=== PATIENT | male | born 1970 | race African-American/Black ===

== ENCOUNTER 2017-05-20 10:33 | Emergency (ER) | payer OTHER ==
[2017-05-20 10:38] VITALS: BMI 55.2
--- NOTE | 2017-05-20 11:10 | PDOC ---
History of Present Illness <Kiera Santacruz - Last Filed: 05/20/17 11:37> - History of Present Illness Initial Comments: 46 year old male with PMH of ADD and Gout presenting with swollen lumps on his face since this AM. States he has had some light itching and swelling of the left lower side of his face/ neck every morning for the past month that has resolved on its own. However, this morning it was much worse, and he had an extremely swollen and painful right ear with multiple swollen lesions around his forehead. He has had a cough for the past month along with some rhinorrhea. Denies any new medications, linen change, detergent change, pets, or other exposures. He took 20 mg of Citirizine without too much relief. Of note, his son has multiple allergies. He denies any fevers, chills, nausea, vomiting, diarrhea, constipation, SOB, or wheezing. 05/20/17 13:08 <Franco Shetty - Last Filed: 05/20/17 15:22> - General Chief Complaint: Allergic Reaction Stated Complaint: SWOLLEN FACE Time Seen by Provider: 05/20/17 11:10 Past History <Kiera Santacruz - Last Filed: 05/20/17 11:37> - Past Medical History COPD: No Other medical history: ADD, GOUT - Suicide/Smoking/Psychosocial Hx Smoking History: Never smoked Information on smoking cessation initiated: No Hx Alcohol Use: No Drug/Substance Use Hx: No Substance Use Type: None <Franco Shetty - Last Filed: 05/20/17 15:22> - Past Medical History Allergies/Adverse Reactions: Allergies Allergy/AdvReac Type Severity Reaction Status Date / Time No Known Allergies Allergy Verified 05/20/17 10:38 Home Medications: Ambulatory Orders Allopurinol [Zyloprim -] 100 mg PO DAILY 05/20/17 Dextroamphetamine/Amphetamine [Adderall 10 mg Tablet] 10 mg PO DAILY 05/20/17 Methylphenidate HCl [Ritalin] 10 mg PO TID 05/20/17 Prednisone [Prednisone 50 MG TABLETS] 50 mg PO DAILY #4 tablet 05/20/17 Review of Systems - Review of Systems Constitutional: No: Chills, Diaphoresis, Fever HEENTM: No: Eye Pain, Blurred Vision Respiratory: Yes: Cough. No: Shortness of Breath, Wheezing Cardiac (ROS): No: Chest Pain, Edema, Irregular Heart Rate, Chest Tightness ABD/GI: No: Constipated, Diarrhea, Nausea, Poor Appetite, Vomiting : No: Burning, Dysuria, Discharge Musculoskeletal: No: Back Pain, Joint Pain Integumentary: Yes: Lesions, Lumps. No: Bruising, Erythema Neurological: No: Headache, Numbness, Paresthesia Endocrine: No: Flushing <Franco Shetty - Last Filed: 05/20/17 15:22> *Physical Exam - Vital Signs Last Vital Signs Temp Pulse Resp BP Pulse Ox 97.7 F 89 18 136/87 100 05/20/17 10:35 05/20/17 10:35 05/20/17 10:35 05/20/17 10:35 05/20/17 10:35 <Kiera Santacruz - Last Filed: 05/20/17 11:37> - Vital Signs Last Vital Signs Temp Pulse Resp BP Pulse Ox 97.7 F 89 18 136/87 100 05/20/17 10:35 05/20/17 10:35 05/20/17 10:35 05/20/17 10:35 05/20/17 10:35 - Physical Exam General Appearance: Yes: Nourished, Appropriately Dressed. No: Apparent Distress HEENT: positive: EOMI, JEET, Normal Voice, Symmetrical, TMs Normal, Pharynx Normal, Other (Right ear slightly tender and moderately swollen. Cutaneous tissue over left and right mandibular area swollen ). negative: Normal ENT Inspection, Hearing Decreased, TM Bulging, TM Dull, TM Erythema Neck: positive: Trachea midline, Normal Thyroid, Supple. negative: Tender, Rigid, Stridor Respiratory/Chest: positive: Lungs Clear, Normal Breath Sounds. negative: Chest Tender, Respiratory Distress, Accessory Muscle Use Cardiovascular: positive: Regular Rhythm, Regular Rate Gastrointestinal/Abdominal: positive: Normal Bowel Sounds, Flat, Soft. negative : Tender Lymphatic: positive: Adenopathy. negative: Tenderness Musculoskeletal: positive: Normal Inspection. negative: CVA Tenderness Extremity: positive: Normal Capillary Refill, Normal Inspection, Normal Range of Motion, Pelvis Stable. negative: Tender Integumentary: negative: Normal Color (Per above), Dry, Warm Neurologic: positive: manager custom II-XII NML intact, Fully Oriented, Alert, Normal Mood/ Affect, Normal Response, Motor Strength 5/5 <Franco Shetty - Last Filed: 05/20/17 15:22> Medical Decision Making - Medical Decision Making 46 year old male with allergic reaction of his face with multiple cutaneous lesions. No airway compromise on presentation. Patient remained stable with improved symptoms after steroid Methylpred 125 and Benadryl 50 MG. Will send home with PCP follow up and Prednisone 50 MG x 4 days. 05/20/17 15:08 <Franco Shetty - Last Filed: 05/20/17 15:22> *DC/Admit/Observation/Transfer <Kiera Santacruz - Last Filed: 05/20/17 11:37> - Discharge Dispostion Admit: No <Franco Shetty - Last Filed: 05/20/17 15:22> Diagnosis at time of Disposition: Allergic reaction Qualifiers: Encounter type: initial encounter Qualified Code(s): T78.40XA - Allergy, unspecified, initial encounter - Discharge Dispostion Disposition: HOME Condition at time of disposition: Improved - Prescriptions Prescriptions: Prednisone [Prednisone 50 MG TABLETS] 50 mg PO DAILY #4 tablet - Referrals Referrals: Anurag Baker MD [Staff Physician] - Pradip Kumar MD [Staff Physician] - - Patient Instructions Printed Discharge Instructions: DI for General Allergic Reactions Additional Instructions: You likely have an allergy to a food or other product you are using. It is important to follow up with an intermediate manager (Dr. Kumar) within the next few days. We referred you to Dr. Kumar. You also shlould see a primary care physician within the next few weeks. If you don't have one we referred you to Dr. Baker. Please use the Prednisone daily and use Benadryl for the itching and swelling as well. Please return to the ED if you have new or worsening symptoms despite treatment. - Post Discharge Activity
--- NOTE | 2017-05-20 11:17 | PDOC ---
Attending Attestation - Resident Resident Name: Franco Shetty - ED Attending Attestation I have performed the following: I have examined & evaluated the patient, The case was reviewed & discussed with the resident, I agree w/resident's findings & plan, Exceptions are as noted - HPI HPI: 46 yo M presents with allergic reaction with facial hives and swelling, swelling to the R ear. He states it started overnight, has been worsening since. He states that the rash is extremely itchy. He did not eat any new foods. No new detergents, soaps, creams. No prior similar symptoms, however, he has a son who has multiple food allergies. - Physicial Exam PE: GENERAL: Awake, alert, and fully oriented, in no acute distress HEAD: No signs of trauma EYES: PERRLA, EOMI, sclera anicteric, conjunctiva clear ENT: R auricle with edema and slight erythema, blanches. +Urticarial rash to face and scalp, one lesion to the head. Hearing grossly normal, nares patent, oropharynx clear without exudates. Moist mucosa. TMs normal B/L. Airway patent, no oral lesions. NECK: Normal ROM, supple, no lymphadenopathy, JVD, or masses LUNGS: Breath sounds equal, clear to auscultation bilaterally. No wheezes, and no crackles HEART: Regular rate and rhythm, normal S1 and S2, no murmurs, rubs or gallops ABDOMEN: Soft, nontender, normoactive bowel sounds. No guarding, no rebound. No masses EXTREMITIES: Normal range of motion, no edema. No clubbing or cyanosis. No cords, erythema, or tenderness NEUROLOGICAL: Cranial nerves II through XII grossly intact. Normal speech, normal gait SKIN: Warm, Dry, normal turgor, no rashes or lesions noted. - Medical Decision Making Pt with allergic reaction, urticarial rash. No known allergens, unknown inciting factor. Will treat with steroids, H1/H2 blockers, benadryl. Will obs in ED. If he is improving will DC home with a course of prednisone. F/u with security manager for skin testing in the future.
[2017-05-20] MEDS ORDERED: methylPREDNISolone NA SUCC 125 MG/2 ML VIAL IVPB ONE (11:46)
[2017-05-20] MEDS ORDERED: FAMOTIDINE IV 20 MG/12 ML VIAL IVPUSH ONE (11:47)
[2017-05-20] MEDS ORDERED: methylPREDNISolone NA SUCC 125 MG/2 ML VIAL ONE (11:51)
[2017-05-20] MEDS ORDERED: FAMOTIDINE 20 MG/50 ML IVPB 20 MG/50 ML MG IVPB ONE (11:51)
[2017-05-20 15:34] VITALS: BP 129/70; PULSE 72; TEMP 98.2
== END 2017-05-20 15:42 | disposition home or self-care (01) ==
LOC: JER 10:33
PROC: 3E0333Z Introduction of Anti-inflammatory into Peripheral Vein, Percutaneous Approach (ICD-10-PCS; principal; 2017-05-20)
PROC: 3E033GC Introduction of Other Therapeutic Substance into Peripheral Vein, Percutaneous Approach (ICD-10-PCS; 2017-05-20)
PROC: 3E033GC Introduction of Other Therapeutic Substance into Peripheral Vein, Percutaneous Approach (ICD-10-PCS; 2017-05-20)
PROC: 3E033GC Introduction of Other Therapeutic Substance into Peripheral Vein, Percutaneous Approach (ICD-10-PCS; 2017-05-20)
DX: T78.49XA Other allergy, initial encounter (principal); L50.9 Urticaria, unspecified
CPT/HCPCS: 99283-25

== ENCOUNTER 2017-05-23 10:05 | Observation (INO) | payer OTHER ==
--- NOTE | 2017-05-23 11:04 | PDOC ---
History of Present Illness - History of Present Illness Initial Comments: 05/23/17 11:29 The patient is a 46 year old male with a significant PMH of ADD, Gout, and "partial closed off kidney presenting with new onset of fatigue, generalized weakness, lightheadedness, nausea and vomiting this morning after being seen for diffuse hives on 05/20/17 and sent home with steroids for treatment. The patient states the hives have not improved since his visit on 05/20/17. He states he woke up to use to the restroom today and "felt weak like I was going to faint ". He denies every fainting or losing consciousness but reports feeling very weak. The patient reports one similar episode of weakness yesterday while at home as well. The patient's states she has been using calamine lotion and benadryl as well as the oral steroids to treat the hives without improvement. The patient reports a generalized abdominal discomfort which he describes as being "queezy". He reports he can not even keep down water secondary to nausea. He states he is concerned for his kidneys because he "didn't realize the steroids might affect the kidney until after starting the steroids." Secondarily , he stated he has an appointment with an admittance attendant next Sunday. He denies chest pain, shortness of breath, headache and dizziness. He denies fever, chills, diarrhea and constipation. He denies dysuria, frequency, urgency and hematuria. <Tracie Howell - Last Filed: 05/23/17 13:07> <Desi Triplett - Last Filed: 05/23/17 16:20> - General Chief Complaint: Weakness Stated Complaint: REVISIT/ SWOLLEN FACE, VOMITING Time Seen by Provider: 05/23/17 11:03 Past History <Tracie Howell - Last Filed: 05/23/17 13:07> - Past Medical History COPD: No - Suicide/Smoking/Psychosocial Hx Smoking History: Never smoked Have you smoked in the past 12 months: No Information on smoking cessation initiated: No Hx Alcohol Use: No Drug/Substance Use Hx: No Substance Use Type: None <Desi Triplett - Last Filed: 05/23/17 16:20> - Past Medical History Allergies/Adverse Reactions: Allergies Allergy/AdvReac Type Severity Reaction Status Date / Time No Known Allergies Allergy Verified 05/23/17 10:07 Home Medications: Ambulatory Orders Allopurinol [Zyloprim -] 100 mg PO DAILY 05/20/17 Dextroamphetamine/Amphetamine [Adderall 10 mg Tablet] 10 mg PO DAILY 05/20/17 Methylphenidate HCl [Ritalin] 10 mg PO DAILY 05/20/17 Prednisone [Prednisone 50 MG TABLETS] 50 mg PO DAILY #4 tablet 05/20/17 Review of Systems - Review of Systems Able to Perform ROS?: Yes Comments:: 05/23/17 11:38 CONSTITUTIONAL: (+) weakness and fatigue. Absent: fever, no chills, EYES: Absent: visual changes ENT: Absent: ear pain, no sore throat CARDIOVASCULAR: Absent: chest pain, no palpitations RESPIRATORY: Absent: cough, no SOB GASTROINTESTINAL: (+) abdominal pain, nausea, vomiting, Absent:no constipation, no diarrhea GENITOURINARY: Absent: dysuria, no frequency, no hematuria MUSCULOSKELETAL: Absent: back pain, no arthralgia, no myalgia SKIN: (+) hives, rash NEURO: (+) lightheadedness. Absent: headache <Tracie Howell - Last Filed: 05/23/17 13:07> *Physical Exam - Vital Signs Last Vital Signs Temp Pulse Resp BP Pulse Ox 98.8 F 125 H 18 90/62 100 05/23/17 10:07 05/23/17 10:07 05/23/17 10:07 05/23/17 10:07 05/23/17 10:07 - Physical Exam Comments: 05/23/17 11:39 GENERAL: The patient is in no acute distress. HEAD: Normal with no signs of trauma. EYES: PERRLA, EOMI, sclera anicteric, conjunctiva clear. ENT: (+) Dry mucous membranes. Ears normal, nares patent, oropharynx clear without exudates. NECK: Normal range of motion, supple without lymphadenopathy, JVD, or masses. LUNGS: Breath sounds equal, clear to auscultation bilaterally. No wheezes, and no crackles. HEART: (+) tachycardic rate. Regular rhythm, normal S1 and S2 without murmur, rub or gallop. ABDOMEN: Soft, nontender, normoactive bowel sounds. No guarding, no rebound. No masses palpable. EXTREMITIES: Normal range of motion, no edema. No clubbing or cyanosis. No erythema, or tenderness. NEUROLOGICAL: Cranial nerves II through XII grossly intact. Normal speech. No focal neurological deficits. MUSCULOSKELETAL: Back non-tender to palpation, no CVA tenderness SKIN: (+) widely diffuse urticarial lesions to extremities, abdomen, back, trunk , neck. <Tracie Howell - Last Filed: 05/23/17 13:07> - Vital Signs Last Vital Signs Temp Pulse Resp BP Pulse Ox 98.8 F 125 H 18 90/62 100 05/23/17 10:07 05/23/17 10:07 05/23/17 10:07 05/23/17 10:07 05/23/17 10:07 <Desi Triplett - Last Filed: 05/23/17 16:20> ED Treatment Course - LABORATORY CBC & Chemistry Diagram: 05/23/17 12:11 05/23/17 12:11 <Tracie Howell - Last Filed: 05/23/17 13:07> - LABORATORY CBC & Chemistry Diagram: 05/23/17 12:11 05/23/17 12:11 <Desi Triplett - Last Filed: 05/23/17 16:20> Medical Decision Making - Medical Decision Making 05/23/17 12:35 Mr Herrmann is a 46 yo M who presents to the ER hypotensive with a complaint of intractable nausea., queasiness One fever noted No chest pain No shortenss of breath Pt was recently see in the ER for allergic reaction Pt has persistent urticarial lesions No tongue or throat swelling EKG: Sinus tachycardia, rate of 103 bpm, axis is normal, intervals are normal, no ST elevations or depressions, T waves are inverted in leads and aVF 05/23/17 13:48 Laboratory Tests 05/23/17 05/23/17 05/23/17 12:11 12:11 12:11 WBC 3.0 L Hgb 17.7 H Hct 51.8 H Plt Count 276 PT with INR 15.30 H INR 1.35 H Sodium 136 Potassium 4.4 Chloride 104 Carbon Dioxide 25 BUN 22 H Creatinine 1.3 Random Glucose 160 H Lactic Acid Total Bilirubin 1.0 Creatine Kinase Troponin I Lipase 50 L 05/23/17 05/23/17 12:11 12:11 WBC Hgb Hct Plt Count PT with INR INR Sodium Potassium Chloride Carbon Dioxide BUN Creatinine Random Glucose Lactic Acid 2.3 H* Total Bilirubin Creatine Kinase 65 Troponin I < 0.02 Lipase 05/23/17 16:14 Pt reports continued abdominal pain CT negative for acute pathology - appendix nml, no sbo Pt continue to have nausea and vomiting Will do US Will give additional Zofran Will continue to hydrate Will 05/23/17 16:19 case reviewed with hospitalist Pt pending CT Symptoms possibly related to gastritis due to prednisone Will continue to hydrate, will give pepcid, will give more zofran Clinical Impression: gastritis, initial presentation <Desi Triplett - Last Filed: 05/23/17 16:20> *DC/Admit/Observation/Transfer - Attestations Scribe Attestion: 05/23/17 11:40 Documentation prepared by Tracie Howell, acting as emergency medical technician basic for Desi Triplett MD <Tracie Howell - Last Filed: 05/23/17 13:07> - Discharge Dispostion Admit: Yes <Desi Triplett - Last Filed: 05/23/17 16:20> Diagnosis at time of Disposition: Vomiting bile Qualifiers: Nausea presence: with nausea Qualified Code(s): R11.14 - Bilious vomiting Gastritis Qualifiers: Gastritis type: unspecified gastritis Chronicity: acute Gastritis bleeding: without bleeding Qualified Code(s): K29.00 - Acute gastritis without bleeding - Discharge Dispostion Condition at time of disposition: Stable
[2017-05-23] MEDS ORDERED: SODIUM CHLORIDE 1,000 ML IV STA ×2 (11:56→15:07)
[2017-05-23] MEDS ORDERED: ONDANSETRON 4 MG/2 ML VIAL IVPB ONE (11:56)
[2017-05-23] MEDS ORDERED: ONDANSETRON 4 MG/2 ML VIAL ONE ×2 (12:22→16:33)
[2017-05-23 12:43] LABS: BASO % 0.1 % (0-2.0); EOS % 0.1 % (0-4.5); HEMATOCRIT 51.8 % (35.4-49); HEMOGLOBIN 17.7 GM/dL (11.7-16.9); LYMPH % 27.2 % (8-40); MCH 29.1 pg (25.7-33.7); MCHC 34.1 g/dl (32.0-35.9); MEAN CELL VOLUME 85.2 fl (80-96); MEAN PLT VOLUME 9.2 fl (7.5-11.1); NEUT % 65.6 % (42.8-82.8); PLATELET COUNT 276 K/MM3 (134-434); RBC 6.08 M/mm3 (4.00-5.60)
[2017-05-23 13:07] LABS: INR 1.35 (0.82-1.09); PROTHROMBIN TIME (PATIENT) 15.3 SEC (9.98-11.88)
[2017-05-23 13:21] LABS: ALBUMIN 3.2 g/dl (3.4-5.0); ANION GAP 7 (8-16); BLOOD UREA NITROGEN 22 mg/dL (7-18); CALCIUM 8.4 mg/dL (8.5-10.1); CHLORIDE 104 mmol/L (98-107); CO2 25 mmol/L (21-32); CREATININE 1.3 mg/dL (0.7-1.3); GLUCOSE,RANDOM 160 mg/dL (74-106); LIPASE 50 U/L (73-393); POTASSIUM 4.4 mmol/L (3.5-5.1); SGOT/AST 15 U/L (15-37); SGPT/ALT 33 U/L (12-78); SODIUM 136 mmol/L (136-145); TOT PROT 6.3 g/dl (6.4-8.2)
[2017-05-23 13:22] LABS: ALK PHOS 67 U/L (45-117)
[2017-05-23] MEDS ORDERED: morphine CARPU-JECT 4 MG/1 ML DISP.SYRIN IVPUSH ONE (15:06)
[2017-05-23] MEDS ORDERED: MORPHINE SULFATE 10 MG/1 ML *VIAL ONE (15:11)
--- NOTE | 2017-05-23 15:37 | EKG ---
Test Reason : Blood Pressure : / mmHG Vent. Rate : 103 BPM Atrial Rate : 103 BPM P-R Int : 140 ms QRS Dur : 086 ms QT Int : 308 ms P-R-T Axes : 068 036 021 degrees QTc Int : 403 ms SINUS TACHYCARDIA POSSIBLE LEFT ATRIAL ENLARGEMENT NONSPECIFIC T WAVE ABNORMALITY ABNORMAL ECG NO PREVIOUS ECGS AVAILABLE Confirmed by DILSHAD SHRESTHA, REBECCA ([id number]) on 05/23/2017 3:36:47 PM Referred By: Confirmed By:REBECCA YUNG MD
[2017-05-23] MEDS ORDERED: ONDANSETRON 4 MG/2 ML VIAL IVPUSH ONE (16:13)
[2017-05-23] MEDS ORDERED: FAMOTIDINE 20 MG/50 ML IVPB 20 MG/50 ML MG IVPB ONE ×2 (16:22→16:34)
--- NOTE | 2017-05-23 17:15 | PN ---
Teaching Attending Note Name of Resident: Ismael Cisneros ATTENDING PHYSICIAN STATEMENT I saw and evaluated the patient. I reviewed the resident's note and discussed the case with the resident. I agree with the resident's findings and plan as documented. SUBJECTIVE: OBJECTIVE: Vital Signs Period Temp Pulse Resp BP Sys/Epps Pulse Ox Last 24 Hr 98.3 F-98.8 F 98-125 18 90-139/62-94 95-100 Laboratory Tests 05/23/17 05/23/17 05/23/17 12:11 12:11 12:11 WBC 3.0 L RBC 6.08 H Hgb 17.7 H Hct 51.8 H MCV 85.2 MCH 29.1 MCHC 34.1 RDW 14.0 Plt Count 276 MPV 9.2 Neutrophils % 65.6 Lymphocytes % 27.2 Monocytes % 7.0 Eosinophils % 0.1 Basophils % 0.1 PT with INR 15.30 H INR 1.35 H Sodium 136 Potassium 4.4 Chloride 104 Carbon Dioxide 25 Anion Gap 7 L BUN 22 H Creatinine 1.3 Creat Clearance w eGFR 59.70 Random Glucose 160 H Lactic Acid Calcium 8.4 L Total Bilirubin 1.0 AST 15 ALT 33 Alkaline Phosphatase 67 Creatine Kinase Troponin I Total Protein 6.3 L Albumin 3.2 L Lipase 50 L 05/23/17 05/23/17 12:11 12:11 WBC RBC Hgb Hct MCV MCH MCHC RDW Plt Count MPV Neutrophils % Lymphocytes % Monocytes % Eosinophils % Basophils % PT with INR INR Sodium Potassium Chloride Carbon Dioxide Anion Gap BUN Creatinine Creat Clearance w eGFR Random Glucose Lactic Acid 2.3 H* Calcium Total Bilirubin AST ALT Alkaline Phosphatase Creatine Kinase 65 Troponin I < 0.02 Total Protein Albumin Lipase Home Medications Medication Instructions Recorded Allopurinol [Zyloprim -] 100 mg PO DAILY 05/20/17 Dextroamphetamine/Amphetamine 10 mg PO DAILY 05/20/17 [Adderall 10 mg Tablet] Methylphenidate HCl [Ritalin] 10 mg PO DAILY 05/20/17 Prednisone [Prednisone 50 MG 50 mg PO DAILY #4 tablet 05/20/17 TABLETS] ASSESSMENT AND PLAN:
--- NOTE | 2017-05-23 17:26 | HP ---
CHIEF COMPLAINT: nausea, vomiting, pain abdomen. PCP: darek logan [phone] HISTORY OF PRESENT ILLNESS: He reports that this morning e has epigastria pain , non radiating, burning type, got better after morphine associated with vomiting. Has 4 episodes of vomiting, bile color, no blood. Denies blood in stool, denies diarrhoea, denies yellow discoloration of eyes, denies change in stool color, denies blood transfusion history, denies iv drug abuse. reports he ate pizza on Sunday and after that he develop rash all over the body, rashes are not getting better, reports they goes away and new one shows up.Denies difficulty in swallowing and breathing. Denies new soap, shampoo, clothes, bed sheet, medication, food. Denies hiking, Denies working in wood. He also reports couple of episodes of fever max 102.4 Denies burning micturation, change in frequency, swelling in joints, chills. Denies myalgia, arthalgia. In Er found to be ypotensive: improved after IV fluid. 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 Allergies No Known Allergies Allergy (Verified 05/23/17 10:07) HOME MEDICATIONS: Home Medications Medication Instructions Recorded Allopurinol [Zyloprim -] 100 mg PO DAILY 05/20/17 Dextroamphetamine/Amphetamine 10 mg PO DAILY 05/20/17 [Adderall 10 mg Tablet] Methylphenidate HCl [Ritalin] 10 mg PO DAILY 05/20/17 Prednisone [Prednisone 50 MG 50 mg PO DAILY #4 tablet 05/20/17 TABLETS] REVIEW OF SYSTEMS CONSTITUTIONAL: Absent: fever, chills, diaphoresis, generalized weakness, malaise, loss of appetite, weight change HEENT: Absent: rhinorrhea, nasal congestion, throat pain, throat swelling, difficulty swallowing, mouth swelling, ear pain, CARDIOVASCULAR: Absent: chest pain, syncope, palpitations, irregular heart rate, lightheadedness , peripheral edema RESPIRATORY: Absent: cough, shortness of breath, dyspnea with exertion, wheezing, stridor, hemoptysis GASTROINTESTINAL: Absent: abdominal pain, abdominal distension, nausea, vomiting, diarrhea, constipation, melena, hematochezia GENITOURINARY: Absent: dysuria, frequency, urgency, hesitancy, hematuria, flank pain, genital pain MUSCULOSKELETAL: Absent: myalgia, arthralgia, joint swelling, back pain, neck pain SKIN: as above HEMATOLOGIC/IMMUNOLOGIC: Absent: easy bleeding, easy bruising, ENDOCRINE: Absent: unexplained weight gain, unexplained weight loss, NEUROLOGIC: Absent: headache, focal weakness or paresthesias, PSYCHIATRIC: Absent: anxiety, depression, PHYSICAL EXAMINATION Vital Signs - 24 hr 05/23/17 05/23/17 05/23/17 10:07 11:50 15:18 Temperature 98.8 F 98.3 F Pulse Rate 125 H Pulse Rate [ 105 H 98 H Apical] Respiratory 18 Rate Blood Pressure 90/62 Blood Pressure 139/94 119/75 [Left Arm] O2 Sat by Pulse 100 98 95 Oximetry (%) GENERAL: Awake, alert, and fully oriented, HEAD: Normal with no signs of trauma. EYES: Pupils equal, round and reactive to light, extraocular movements intact, sclera anicteric, conjunctiva clear. No lid lag. no yellow discoloration EARS, NOSE, THROAT: oropharynx clear without exudates. Moist mucous membranes. no erthema or omar NECK: Normal range of motion, LUNGS: Breath sounds equal, clear to auscultation bilaterally. No wheezes, and no crackles. No accessory muscle use. HEART: Regular rate and rhythm, normal S1 and S2 without murmur, ABDOMEN: Soft, nontender, not distended, normoactive bowel sounds, no guarding, no rebound, no masses. MUSCULOSKELETAL: Normal range of motion at all joints. No bony deformities or tenderness. UPPER EXTREMITIES: 2+ pulses, warm, well-perfused. No cyanosis. No clubbing. No peripheral edema. LOWER EXTREMITIES: warm, well-perfused. No calf tenderness. No peripheral edema. NEUROLOGICAL: Cranial nerves II-XII intact. Normal speech. PSYCHIATRIC: Cooperative. Good eye contact. Appropriate mood and affect. SKIN: Warm, dry, diffuse urticarial rash with some target like lesions. Laboratory Results - last 24 hr 05/23/17 05/23/17 05/23/17 12:11 12:11 12:11 WBC 3.0 L RBC 6.08 H Hgb 17.7 H Hct 51.8 H MCV 85.2 MCH 29.1 MCHC 34.1 RDW 14.0 Plt Count 276 MPV 9.2 Neutrophils % 65.6 Lymphocytes % 27.2 Monocytes % 7.0 Eosinophils % 0.1 Basophils % 0.1 PT with INR 15.30 H INR 1.35 H Sodium 136 Potassium 4.4 Chloride 104 Carbon Dioxide 25 Anion Gap 7 L BUN 22 H Creatinine 1.3 Creat Clearance w eGFR 59.70 Random Glucose 160 H Lactic Acid Calcium 8.4 L Total Bilirubin 1.0 AST 15 ALT 33 Alkaline Phosphatase 67 Creatine Kinase Troponin I Total Protein 6.3 L Albumin 3.2 L Lipase 50 L 05/23/17 05/23/17 05/23/17 12:11 12:11 16:40 WBC RBC Hgb Hct MCV MCH MCHC RDW Plt Count MPV Neutrophils % Lymphocytes % Monocytes % Eosinophils % Basophils % PT with INR INR Sodium Potassium Chloride Carbon Dioxide Anion Gap BUN Creatinine Creat Clearance w eGFR Random Glucose Lactic Acid 2.3 H* 1.4 Calcium Total Bilirubin AST ALT Alkaline Phosphatase Creatine Kinase 65 Troponin I < 0.02 Total Protein Albumin Lipase CT abdomen : Evaluation of the solid viscera, bowel and vessels is limited without contrast. There is discoid atelectasis in both lung bases, right more than left. The heart is not enlarged. There is hepatic steatosis. Normal liver size and contour. The gallbladder is not pathologically distended. The common bile duct is not dilated. The unenhanced pancreas is unremarkable. Normal size spleen. There is no adrenal gland mass. The kidneys are normal size. 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 There are no renal or ureteral calculi. No hydroureteronephrosis. There are likely left renal sinus cysts. Normal caliber abdominal aorta. No pathologically enlarged lymph nodes within the abdomen or pelvis by CT size criteria. No dilated loops of large or small bowel to suggest obstruction. A normal-appearing appendix is visualized. There are sigmoid diverticula with no evidence of diverticulitis. There is no free intraperitoneal air or ascites. The urinary bladder is underdistended, limiting evaluation. There is no evidence of urinary bladder calculus. The prostate gland is normal size. No acute fracture in the visualized bones. IMPRESSION: 1. No obstructive uropathy. No evidence of urinary tract calculus. 2. Normal-appearing appendix. No evidence of bowel obstruction or diverticulitis. 3. Hepatic steatosis. ASSESSMENT/PLAN: 46 y/o m with PMH of gout came to hospital on Sunday for generalized urticaria. He was discharged on Benadryl and prednisone( 50mg started on Sunday). Now came back for lightheadedness, generalized weaken, vomiting, pain abdomen. Gastritis likely from prednisone. Less likely gall stone ds. Iv protonix 40 bid sucralfate po IV fluid clear liquid if tolerate monitor intake and output monitor vitals usg liver pending. morphine prn for pain. zofran for vomiting/nausea Genralized rash : likely urticaria, less likely lyme benadryl 25mg po q6h prn hold steroid for now, so rash doesn't subside before derma and id evaluation. Although patient took steroid for 3 days with no benefit. ASHIA, CRP, ESR ID consult [place] consult. Patient has outpatient appointment with group home manager and diesel power mechanic next Sunday. Lacticacidosis: likely from hypotension from vomiting or from inflammatory process. ADD continue home meds. Fluid: Ns 100ml/hr electrolyte: repeat in a Nutrition; clear liquid. Dvt pro: scd gi pro; protonix and sucralfate. dispo; observation. Visit type - Emergency Visit Emergency Visit: Yes Care time: The patient presented to the Emergency Department on the above date and was hospitalized for further evaluation of their emergent condition. - New Patient This patient is new to me today: Yes Date on this admission: 05/23/17 - Critical Care Critical Care patient: No Hospitalist Screening - Colonoscopy Questionnaire Colonoscopy Questionnaire: Colonoscopy Questionnaire - Patient: 50 - 75 years old and never had a screening colonoscopy: Unknown History of colon or rectal polyps, or CA: Unknown History of IBD, Crohn's disease or UC: Unknown History of abdominal radiation therapy as a child: Unknown - Relative: 1 with colon or rectal CA, or polyps at age 60 or younger: Unknown Colon or rectal CA diagnosed at age 45 or younger: Unknown Multiple relatives with colon or rectal CA: Unknown - Outcome: Screening Result: Negative Screen
[2017-05-23] MEDS: SODIUM CHLORIDE 1,000 ML IV SCH (17:41)
[2017-05-23] MEDS ORDERED: morphine SULFATE 4 MG/ML VIAL IVPUSH PRN (17:59)
[2017-05-23] MEDS ORDERED: ONDANSETRON 4 MG/2 ML VIAL IVPUSH PRN (18:00)
[2017-05-23] MEDS ORDERED: PANTOPRAZOLE SODIUM 40 MG VIAL ONE (22:48)
[2017-05-23] MEDS ORDERED: diphenhydrAMINE HCL 25 MG CAPSULE (FP) PO ONE (22:48)
[2017-05-23] MEDS: SUCRALFATE 1 GM TABLET (FP) PO SCH (22:57)
[2017-05-23] MEDS: PANTOPRAZOLE SODIUM 40 MG VIAL IVPUSH SCH (22:58)
[2017-05-23] MEDS: diphenhydrAMINE HCL 25 MG CAPSULE (FP) PO PRN (22:58)
[2017-05-24] MEDS ORDERED: diphenhydrAMINE HCL 25 MG CAPSULE (FP) PO ONE (05:18)
[2017-05-24] MEDS: SODIUM CHLORIDE 1,000 ML IV SCH ×3 (05:20→21:55)
[2017-05-24] MEDS: diphenhydrAMINE HCL 25 MG CAPSULE (FP) PO PRN ×2 (05:20→11:35)
[2017-05-24 08:09] LABS: BASO % 0.1 % (0-2.0); EOS % 1.4 % (0-4.5); HEMATOCRIT 48.3 % (35.4-49); HEMOGLOBIN 16.2 GM/dL (11.7-16.9); LYMPH % 35.8 % (8-40); MCH 29.2 pg (25.7-33.7); MCHC 33.6 g/dl (32.0-35.9); MEAN PLT VOLUME 9.2 fl (7.5-11.1); MONO % 5.4 % (3.8-10.2); NEUT % 57.3 % (42.8-82.8); PLATELET COUNT 273 K/MM3 (134-434); RBC 5.55 M/mm3 (4.00-5.60); RDW 13.8 % (11.9-15.9); WHITE BLOOD COUNT 3.6 K/mm3 (4.0-10.0)
[2017-05-24 08:25] LABS: INR 1.4 (0.82-1.09); PROTHROMBIN TIME (PATIENT) 15.8 SEC (9.98-11.88)
[2017-05-24 08:49] LABS: ALBUMIN 2.6 g/dl (3.4-5.0); ANION GAP 6 (8-16); BILIRUBIN,TOTAL 0.9 mg/dL (0.2-1.0); BLOOD UREA NITROGEN 19 mg/dL (7-18); CALCIUM 7.9 mg/dL (8.5-10.1); CHLORIDE 107 mmol/L (98-107); CO2 27 mmol/L (21-32); CREATININE 1.3 mg/dL (0.7-1.3); GLUCOSE,RANDOM 104 mg/dL (74-106); MAGNESIUM 2.2 mg/dL (1.8-2.4); POTASSIUM 4.4 mmol/L (3.5-5.1); SGOT/AST 7 U/L (15-37); SGPT/ALT 20 U/L (12-78); SODIUM 140 mmol/L (136-145); TOT PROT 5.4 g/dl (6.4-8.2)
[2017-05-24 08:54] LABS: ALK PHOS 58 U/L (45-117)
[2017-05-24] MEDS: SUCRALFATE 1 GM TABLET (FP) PO SCH ×2 (09:14→21:49)
[2017-05-24] MEDS ORDERED: PANTOPRAZOLE SODIUM 40 MG VIAL ONE (09:16)
[2017-05-24] MEDS: PANTOPRAZOLE SODIUM 40 MG VIAL IVPUSH SCH ×2 (09:17→21:49)
--- NOTE | 2017-05-24 11:43 | PN ---
Progress Note (short form) - Note Progress Note: ID Generalized urticarial rash with lip swelling several days seen ER and given prednisone without improvement Yesterday felt week like going to fall out Also febrile at home 102 shivering per . No localizing complaints Take Allopurinol for gout but this is an old medication for home. Selected Entries 05/24/17 06:00 Temperature 97.8 F Pulse Rate 69 Respiratory 20 Rate Blood Pressure 121/64 Assessment Severe uriticaria Allergic urticaria Fever ? source Also leukopenia noted high CRP afebrile Plan Blood and urine cultures Observe fever off antibiotics Solumedrol 80mg q 8 H HIV testing Dermatology evaluation Edilberto SHRESTHA Problem List - Problems (1) Allergic reaction Code(s): T78.40XA - ALLERGY, UNSPECIFIED, INITIAL ENCOUNTER Qualifiers: Encounter type: initial encounter Qualified Code(s): T78.40XA - Allergy, unspecified, initial encounter (2) Acute urticaria Code(s): L50.8 - OTHER URTICARIA (3) Fever Code(s): R50.9 - FEVER, UNSPECIFIED
--- NOTE | 2017-05-24 12:57 | CONS ---
INFECTIOUS DISEASE CONSULTATION DATE OF CONSULTATION: DATE OF DICTATION: 05/24/2017 This is a 46-year-old male who was admitted to the hospital with chief complaint of generalized urticaria. The patient was recently seen in the emergency room for onset of hives and sent home with a prescription for prednisone 50 mg which he took earlier this week. The rash did not improve, however, and yesterday, according to his and the patient, he developed onset of temperature to 102. He also had shaking chills but denied any localizing complaints. Here in the emergency room, he complains of diffuse rash and facial swelling. He has no fever, and his vital signs are stable. He has a history of gout for which he takes allopurinol, but this is an old medication which he has tolerated well in the past. He is on no other medications, though notes a history of partial obstruction of the kidney due to a congenital abnormality. 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 He does not smoke or use drugs. He is . FAMILY HISTORY: Reviewed and noncontributory. REVIEW OF SYSTEMS: Respiratory: No cough, shortness of breath, sore throat. Cardiac: No chest pain, palpitations, syncope. Gastrointestinal: No abdominal pain. Three episodes of vomiting noted yesterday. Currently, no nausea, blood per rectum, diarrhea. Genitourinary: No dysuria, hematuria, urinary frequency. PHYSICAL EXAMINATION: General: He was an alert male in no acute distress. Vital Signs: Temperature was 98, pulse 98, blood pressure 120/75, respirations 9.5. Skin: Large urticarial plaques coalescing on the lower extremities, thighs. DIAGNOSTIC DATA: The white count is 3.0 with a hemoglobin of 17.7, platelets of 276, and normal differential count. BUN 19, creatinine 1.3. Bilirubin 1.0. AST 15. CRP 22.7. Abdominal CT obtained shows no obstructive uropathy, essentially normal except for hepatic steatosis. ASSESSMENT: 1. Severe urticaria. 2. Allergic urticaria with facial swelling and angioedema. 3. History of fever and chills with shivering but no localizing complaints currently, and he is here afebrile with stable vital signs. I would prefer not to give him any antibiotic or other medications at this time. He does need parenteral steroids, and I have given him 60 mg of Solu-Medrol every 6 hours. Will await dermatology consultation. KARUNA PAREDES M.D. MERLY/[id number]
--- NOTE | 2017-05-24 16:52 | PN ---
Physical Exam: SUBJECTIVE: Patient seen and examined in the ED awaiting bed placement. OBJECTIVE: See in the ED generalized welts Feels uncomfortable, itchy will give IV Benadryl now and tonight Vital Signs Period Temp Pulse Resp BP Sys/Epps Pulse Ox Last 24 Hr 97.8 F-98.8 F 69-94 18-20 100-121/59-69 94-94 GENERAL: The patient is awake, alert, and fully oriented, in no acute distress. HEAD: Normal with no signs of trauma. EYES: PERRL, extraocular movements intact, sclera anicteric, conjunctiva clear. No ptosis. ENT: Ears normal, nares patent, oropharynx clear without exudates, moist mucous membranes. NECK: Trachea midline, full range of motion, supple. LUNGS: Breath sounds equal, clear to auscultation bilaterally, no wheezes, no crackles, no accessory muscle use. HEART: Regular rate and rhythm, S1, S2 without murmur, rub or gallop. ABDOMEN: Soft, nontender, nondistended, normoactive bowel sounds, no guarding, no rebound, no hepatosplenomegaly, no masses. SKIN: generalized welts, unclear etiology Laboratory Results - last 24 hr 05/23/17 05/23/17 05/24/17 12:11 16:40 07:40 WBC 3.6 L RBC 5.55 Hgb 16.2 Hct 48.3 MCV 87.0 MCH 29.2 MCHC 33.6 RDW 13.8 Plt Count 273 MPV 9.2 Neutrophils % 57.3 Lymphocytes % 35.8 D Monocytes % 5.4 Eosinophils % 1.4 D Basophils % 0.1 ESR PT with INR INR Sodium Potassium Chloride Carbon Dioxide Anion Gap BUN Creatinine Creat Clearance w eGFR Random Glucose Lactic Acid 1.4 Calcium Phosphorus Magnesium Total Bilirubin AST ALT Alkaline Phosphatase Creatine Kinase 65 Troponin I < 0.02 C-Reactive Protein 14.7 H Total Protein Albumin 05/24/17 05/24/17 05/24/17 07:40 07:40 07:40 WBC RBC Hgb Hct MCV MCH MCHC RDW Plt Count MPV Neutrophils % Lymphocytes % Monocytes % Eosinophils % Basophils % ESR PT with INR 15.80 H INR 1.40 H Sodium 140 Potassium 4.4 Chloride 107 Carbon Dioxide 27 Anion Gap 6 L BUN 19 H Creatinine 1.3 Creat Clearance w eGFR 59.70 Random Glucose 104 D Lactic Acid Calcium 7.9 L Phosphorus 2.0 L Magnesium 2.2 Total Bilirubin 0.9 AST 7 L D ALT 20 D Alkaline Phosphatase 58 Creatine Kinase Troponin I C-Reactive Protein 22.7 H Cancelled Total Protein 5.4 L Albumin 2.6 L 05/24/17 07:40 WBC RBC Hgb Hct MCV MCH MCHC RDW Plt Count MPV Neutrophils % Lymphocytes % Monocytes % Eosinophils % Basophils % ESR 6 PT with INR INR Sodium Potassium Chloride Carbon Dioxide Anion Gap BUN Creatinine Creat Clearance w eGFR Random Glucose Lactic Acid Calcium Phosphorus Magnesium Total Bilirubin AST ALT Alkaline Phosphatase Creatine Kinase Troponin I C-Reactive Protein Total Protein Albumin Active Medications Generic Name Dose Route Start Last Admin Trade Name Freq PRN Reason Stop Dose Admin Diphenhydramine HCl 25 mg 05/23/17 17:24 05/24/17 11:35 Benadryl - PO 25 mg Q6H PRN Administration urticaria Sodium Chloride 1,000 mls @ 100 mls/hr 05/23/17 17:30 05/24/17 05:20 Normal Saline - IV 100 mls/hr ASDIR ROMERO Administration Methylprednisolone Sodium Succinate 60 mg 05/24/17 18:00 Solu-Medrol - IVPUSH Q8H-IV ROMERO Morphine Sulfate 2 mg 05/23/17 17:59 Morphine Sulfate IVPUSH 05/26/17 17:58 Q6H PRN PAIN LEVEL 6-10 Ondansetron HCl 4 mg 05/23/17 18:00 Zofran Injection IVPUSH Q6H PRN NAUSEA Pantoprazole Sodium 40 mg 05/23/17 22:00 05/24/17 09:17 Protonix Iv IVPUSH 40 mg BID ROMERO Administration Sucralfate 1 gm 05/23/17 22:00 05/24/17 09:14 Carafate - PO 1 gm BID ROMERO Administration ASSESSMENT/PLAN: Patient is a 46 year old male who comes to the ED with c/o of epigastria pain, non radiating. Patient reports that on Sunday he ate pizza then developed a rash all over his body. Rash persists, not getting better, denies any other possible cause that he can think of. Not allergic to anything else that he is aware of. No new soaps, meds, shampoos, foods. Has cat x 6 months. Derm: Generalized Rash, no wheezing Now on Solumedrol 60mg q8 per ID On Protonix IV BID for GI protection Benadryl 25mg IV Morphine prn ID consult and following [place] consult. Monitor for improvement Card: Hypotension improved with IVF Continue IVF F.E.N. Fluids: NS @ 100 x 24 hours Electrolytes: monitor Nutrition: regular diet Prophy: DVT: scds, ambulation GI: Protonix BID Disposition: full code. Visit type - Emergency Visit Emergency Visit: Yes ED Registration Date: 05/23/17 Care time: The patient presented to the Emergency Department on the above date and was hospitalized for further evaluation of their emergent condition. - New Patient This patient is new to me today: Yes Date on this admission: 05/25/17 - Critical Care Critical Care patient: No - Discharge Referral Referred to [facility] Med P.C.: No
[2017-05-24] MEDS: methylPREDNISolone NA SUCC 40 MG/1 ML VIAL IVPUSH SCH (18:44)
[2017-05-24 19:05] VITALS: BMI 45.1
--- NOTE | 2017-05-24 19:34 | CONSULT ---
Consult Consult Specialty:: Dermatology - History Source History Provided By: Patient - Past Medical History Rheumatology: Yes: Gout - Alcohol/Substance Use Hx Alcohol Use: No - Smoking History Smoking history: Never smoked Have you smoked in the past 12 months: No Home Medications - Allergies Allergies/Adverse Reactions: Allergies Allergy/AdvReac Type Severity Reaction Status Date / Time No Known Allergies Allergy Verified 05/23/17 10:07 - Home Medications Home Medications: Ambulatory Orders Allopurinol [Zyloprim -] 100 mg PO DAILY 05/20/17 Dextroamphetamine/Amphetamine [Adderall 10 mg Tablet] 10 mg PO DAILY 05/20/17 Methylphenidate HCl [Ritalin] 10 mg PO DAILY 05/20/17 Prednisone [Prednisone 50 MG TABLETS] 50 mg PO DAILY #4 tablet 05/20/17 Family Disease History - Family Disease History Family History: Unable to Obtain Physical Exam Vital Signs: Vital Signs Temperature 99.5 F 05/24/17 18:00 Pulse Rate 104 H 05/24/17 18:00 Respiratory Rate 20 05/24/17 18:00 Blood Pressure 144/77 05/24/17 18:00 O2 Sat by Pulse Oximetry (%) 98 05/24/17 18:00 Labs: CBC, BMP 05/24/17 07:40 05/24/17 07:40 Assessment/Plan 46 yr old mad reports that he developed a generalized rash on Sunday for which he received treatment at ER and was discharged . He continued to get new lesions on skin that was also accompanied by episodes of sweating and symptoms of fainting.he was admitted yesterday with a generalized urticarial eruption including lower lip swelling. He denies shortness of breath, tongue or throat symptoms.\ He does not know of or recall ingesting or being exposed to any new medications , foods or OTC preparations. on exam he has urticarial lesions on all extremities some on anterior hair line and scattered lesions on the chest. The lesions are pruritic and slightly painful to touch. He has edema of arms and hands. Diagnosis. Idiopathic Urticaria. Rx Hydroxyzine 25mg qam Benadryl Q6 prn and continuation of IV steroids. application of triamcinolone 0.1 % cream may also be helpful. Rheumatology and or Allergy consult may also be helpful to determine any underlying etiology
[2017-05-24] MEDS: TRIAMCINOLONE ACET 0.1% CREAM 15 GM TUBE TP SCH (22:21)
[2017-05-25] MEDS: methylPREDNISolone NA SUCC 40 MG/1 ML VIAL IVPUSH SCH ×3 (01:15→23:58)
[2017-05-25] MEDS: hydrOXYzine HCL 25 MG TABLET (FP) PO SCH (06:08)
[2017-05-25] MEDS: PANTOPRAZOLE SODIUM 40 MG VIAL IVPUSH SCH (10:00)
[2017-05-25] MEDS: SUCRALFATE 1 GM TABLET (FP) PO SCH ×2 (10:00→21:37)
[2017-05-25] MEDS: TRIAMCINOLONE ACET 0.1% CREAM 15 GM TUBE TP SCH ×2 (10:00→21:38)
--- NOTE | 2017-05-25 13:46 | PN ---
Physical Exam: SUBJECTIVE: Patient seen and examined, at bedside. Patient feels improved, ambulating. Not dizzy, not short of breath. OBJECTIVE: Rash/welts improving with some redness on chest Vitals stable, stop IVF Taper down IV steriods Convert Protonix to PO Vital Signs Period Temp Pulse Resp BP Sys/Epps Pulse Ox Last 24 Hr 97.9 F-99.5 F 65-104 20-20 111-144/52-77 96-98 GENERAL: The patient is awake, alert, and fully oriented, in no acute distress. HEAD: Normal with no signs of trauma. EYES: PERRL, extraocular movements intact, sclera anicteric, conjunctiva clear. No ptosis. ENT: Ears normal, nares patent, oropharynx clear without exudates, moist mucous membranes. NECK: Trachea midline, full range of motion, supple. LUNGS: Breath sounds equal, clear to auscultation bilaterally, no wheezes, no crackles, no accessory muscle use. HEART: Regular rate and rhythm, S1, S2 without murmur, rub or gallop. ABDOMEN: Soft, nontender, nondistended, normoactive bowel sounds, no guarding, no rebound, no hepatosplenomegaly, no masses. SKIN: generalized welts, unclear etiology Laboratory Results - last 24 hr 05/25/17 05/25/17 01:13 06:03 POC Glucometer 138 150 Active Medications Generic Name Dose Route Start Last Admin Trade Name Freq PRN Reason Stop Dose Admin Diphenhydramine HCl 25 mg 05/23/17 17:24 05/24/17 11:35 Benadryl - PO 25 mg Q6H PRN Administration urticaria Hydroxyzine HCl 25 mg 05/25/17 07:00 05/25/17 06:08 Atarax - PO 25 mg AM ROMERO Administration Sodium Chloride 1,000 mls @ 100 mls/hr 05/23/17 17:30 05/24/17 21:55 Normal Saline - IV 100 mls/hr ASDIR ROMERO Administration Methylprednisolone Sodium Succinate 60 mg 05/24/17 18:00 05/25/17 01:15 Solu-Medrol - IVPUSH 60 mg Q8H-IV ROMERO Administration Morphine Sulfate 2 mg 05/23/17 17:59 Morphine Sulfate IVPUSH 05/26/17 17:58 Q6H PRN PAIN LEVEL 6-10 Ondansetron HCl 4 mg 05/23/17 18:00 Zofran Injection IVPUSH Q6H PRN NAUSEA Pantoprazole Sodium 40 mg 05/23/17 22:00 05/24/17 21:49 Protonix Iv IVPUSH 40 mg BID ROMERO Administration Sucralfate 1 gm 05/23/17 22:00 05/24/17 21:49 Carafate - PO 1 gm BID ROMERO Administration Triamcinolone Acetonide 1 applic 05/24/17 22:00 05/24/17 22:21 Aristocort 0.1% Cream - TP 1 applic BID ROMERO Administration ASSESSMENT/PLAN: Patient is a 46 year old male who comes to the ED with c/o of epigastria pain, non radiating. Patient reports that on Sunday he ate pizza then developed a rash all over his body. Rash persists, not getting better, denies any other possible cause that he can think of. Not allergic to anything else that he is aware of. No new soaps, meds, shampoos, foods. Has cat x 6 months. Derm: Generalized Rash/Welts, no wheezing Rash welts much improved today, still having bilateral arm edema Will taper down steriods and monitor Stop IVF Protonix 40mg PO Triamcinolone cream Atarax daily Benadryl PO prn Morphine prn ID consult and following [place] consulted, notes reviewed Consider transitioning to PO prednisone once symptoms resolve Card: Hypotension improved with IVF stop IVF and monitor F.E.N. Fluids: stop IVF, Encouraged PO Electrolytes: monitor Nutrition: regular diet Prophy: DVT: scds, ambulation GI: Protonix 40mg daily Disposition: full code. Visit type - Emergency Visit Emergency Visit: Yes ED Registration Date: 05/23/17 Care time: The patient presented to the Emergency Department on the above date and was hospitalized for further evaluation of their emergent condition. - New Patient This patient is new to me today: No - Critical Care Critical Care patient: No - Discharge Referral Referred to [facility] Med P.C.: No
[2017-05-25] MEDS: PANTOPRAZOLE 40 MG TABLET (FP) PO SCH (17:00)
[2017-05-25] MEDS ORDERED: PT OWN MED DRAWER 7, Y5N ONE (21:27)
[2017-05-25] MEDS: diphenhydrAMINE HCL 25 MG CAPSULE (FP) PO PRN (21:37)
[2017-05-26] MEDS: hydrOXYzine HCL 25 MG TABLET (FP) PO SCH (06:10)
[2017-05-26 08:39] LABS: HEMATOCRIT 38.2 % (35.4-49); HEMOGLOBIN 12.9 GM/dL (11.7-16.9); MCH 29.3 pg (25.7-33.7); MCHC 33.6 g/dl (32.0-35.9); MEAN CELL VOLUME 87.1 fl (80-96); PLATELET COUNT 306 K/MM3 (134-434); RBC 4.39 M/mm3 (4.00-5.60); WHITE BLOOD COUNT 10.4 K/mm3 (4.0-10.0)
[2017-05-26 09:20] LABS: ALBUMIN 2.5 g/dl (3.4-5.0); ANION GAP 9 (8-16); BLOOD UREA NITROGEN 21 mg/dL (7-18); CALCIUM 7.8 mg/dL (8.5-10.1); CHLORIDE 108 mmol/L (98-107); CO2 24 mmol/L (21-32); GLUCOSE,RANDOM 229 mg/dL (74-106); MAGNESIUM 2.6 mg/dL (1.8-2.4); POTASSIUM 4.4 mmol/L (3.5-5.1); SGOT/AST 23 U/L (15-37); SGPT/ALT 37 U/L (12-78); SODIUM 141 mmol/L (136-145)
[2017-05-26 09:22] LABS: ALK PHOS 56 U/L (45-117); BILIRUBIN,TOTAL 0.2 mg/dL (0.2-1.0); TOT PROT 5.3 g/dl (6.4-8.2)
[2017-05-26] MEDS: methylPREDNISolone NA SUCC 40 MG/1 ML VIAL IVPUSH SCH (09:35)
[2017-05-26] MEDS: SUCRALFATE 1 GM TABLET (FP) PO SCH (09:36)
[2017-05-26] MEDS: TRIAMCINOLONE ACET 0.1% CREAM 15 GM TUBE TP SCH (09:36)
[2017-05-26] MEDS: PANTOPRAZOLE 40 MG TABLET (FP) PO SCH (09:36)
[2017-05-26 10:58] VITALS: BP 126/65; PULSE 78; TEMP 98.6
--- NOTE | 2017-05-26 11:25 | DS ---
Physical Examination Vital Signs: Vital Signs Temperature 98.6 F 05/26/17 09:30 Pulse Rate 78 05/26/17 09:30 Respiratory Rate 17 05/26/17 09:30 Blood Pressure 126/65 05/26/17 09:30 O2 Sat by Pulse Oximetry (%) 97 05/26/17 09:00 Findings/Remarks: General: NAD, A&Ox3 Lungs: CTA bilaterally Heart: RRR, S1S2 Abd: Soft, non-tender. Normoactive bowel sounds Ext: Warm, well-perfused. 2+ DP/PT bilaterally Skin: No urticaria noted Labs: CBC, BMP 05/26/17 07:30 05/26/17 07:30 Discharge Summary Reason For Visit: BILIOUS VOMITING Current Active Problems Acute urticaria (Acute) Fever (Acute) Gastritis (Acute) Vomiting bile (Acute) Condition: Improved - Instructions Diet, Activity, Other Instructions: Please return to the ED with new, persistent, or worsening symptoms. Please follow-up with providers as indicated. Prednisone (steroid) taper: 4/15: 60mg in the morning 4/16: 40mg in the morning 4/17: 40mg in the morning 4/18: 40mg in the morning 4/19: 30mg in the morning 4/20: 30mg in the morning 4/21: 30mg in the morning 4/22: 20mg in the morning 4/23: 20mg in the morning 4/24: 20mg in the morning 4/25: 10mg in the morning 4/26: 10mg in the morning 4/27: 10mg in the morning Continue taking Protonix 40mg by mouth every morning while on steroids. Referrals: Mara Peters MD [Staff Physician] - 1 Week Pradip Kumar MD [Staff Physician] - (Please follow-up with an inventory coordinator within 1 week for further allergy testing and workup regarding your hives.) Petar Stone MD [Staff Physician] - (Please follow-up with rheumatology within 1 week for further workup of your positive ASHIA screen.) Cy Mensah MD [Staff Physician] - 1 Week Disposition: HOME - Home Medications Comprehensive Discharge Medication List: Ambulatory Orders Dextroamphetamine/Amphetamine [Adderall 10 mg Tablet] 10 mg PO DAILY 05/20/17 Methylphenidate HCl [Ritalin] 10 mg PO DAILY 05/20/17 Diphenhydramine HCl [Benadryl Capsule -] 25 mg PO Q6H PRN capsule 05/26/17 Pantoprazole Sodium [Protonix -] 40 mg PO DAILY #30 tablet.ec 05/26/17 Prednisone 10 mg PO ASDIR #36 tablet 05/26/17 Triamcinolone 0.1% Cream [Aristocort 0.1% Cream -] 1 applic TP BID #1 tube 05/26 hydrOXYzine HCL [Atarax -] 25 mg PO AM #30 tablet 05/26/17 - Discharge Referral Referred to [facility] No
[2017-05-26 11:44] LABS: PLATELET ESTIMATE NORMAL
== END 2017-05-26 14:00 | disposition home or self-care (01) ==
LOC: JER 10:05 → JERBED 16:20 → J6S 05-24 17:20
PROVIDERS: ADMIT Internal Medicine; ATTEND Registered Nurse
PROC: 3E0333Z Introduction of Anti-inflammatory into Peripheral Vein, Percutaneous Approach (ICD-10-PCS; principal; 2017-05-23)
PROC: 3E033NZ Introduction of Analgesics, Hypnotics, Sedatives into Peripheral Vein, Percutaneous Approach (ICD-10-PCS; 2017-05-23)
PROC: 3E033GC Introduction of Other Therapeutic Substance into Peripheral Vein, Percutaneous Approach (ICD-10-PCS; 2017-05-23)
PROC: 3E0337Z Introduction of Electrolytic and Water Balance Substance into Peripheral Vein, Percutaneous Approach (ICD-10-PCS; 2017-05-23)
DX: K29.00 Acute gastritis without bleeding (principal); R11.14 Bilious vomiting; R21 Rash and other nonspecific skin eruption; F98.8 Other specified behavioral and emotional disorders with onset usually occurring in childhood and adolescence; M10.9 Gout, unspecified; R50.9 Fever, unspecified; I95.9 Hypotension, unspecified; L50.0 Allergic urticaria
CPT/HCPCS: 36415; 74176-TC; 76705-TC; 80053; 82550; 82962; 83605; 83690; 83735; 84100; 84484; 85025; 85610; 85651; 86038; 86140; 86618; 87040; 93005; 93010; 99285-25; G0378; J7030